=== PATIENT | male | born 1985 | race Caucasian/White ===

== ENCOUNTER 2021-07-03 11:08 | Emergency (ER) | payer BC, SELFPAY ==
--- NOTE | ~2021-07-03 | XR_ITS ---
EXAMINATION: XR FOOT, RIGHT CLINICAL INFORMATION: Pain COMPARISON: None TECHNIQUE: AP, lateral, and oblique views of the right foot. FINDINGS: There is no evidence of acute fracture or dislocation of the right foot. No significant soft tissue swelling is seen. There is a Achilles calcaneal spur present. No radiopaque foreign body. XR/XR foot RT min 3V IMPRESSION: Achilles calcaneal spur. No significant bony abnormality of the right foot identified.
[2021-07-03 11:34] VITALS: BP 133/72; PULSE 60; RESP 16; TEMP 37.1; O2SAT 98; BMI 32.7
--- NOTE | 2021-07-03 13:29 | ED_ITS ---
HPI - Extremity Problem General Chief complaint: Extremity Problem Stated complaint: swollen red foot Time Seen by Provider: 07/03/21 12:47 History of Present Illness HPI Narrative: Patient complains of painful swelling on the top of the right foot with no injury for several days, it is significantly improved but still hurts when his work boot rubs on it and when he puts weight on it, pain is mild, he is walking easily there is no no numbness weakness or tingling Related Data Previous Rx's Medication Instructions Recorded ibuprofen 600 mg tablet 600 mg PO Q6H PRN #20 tab 07/03/21 Allergies Allergy/AdvReac Type Severity Reaction Status Date / Time No Known Allergies Allergy Verified 07/03/21 11:39 Review of Systems Review of Systems: Positive for right foot pain and swelling Negative no fever no chills no headache no neck pain no back pain no difficulty breathing no chest pain no skin rashes no other joint pains Yes all other systems are reviewed and are negative PMFSH Past Medical History Source: nursing notes reviewed Social History Social History Advance Directives: No Advance Directives Information Provided: No Physical Exam Vital Signs: Vital Signs: Last Vital Signs Temp 98.7 F 07/03/21 11:34 Pulse 60 07/03/21 11:34 Resp 16 07/03/21 11:34 BP 133/72 07/03/21 11:34 Pulse Ox 98 07/03/21 11:34 Body Mass Index 32.7 General appearance no acute distress Head is normocephalic atraumatic Neck supple nontender Respiratory no distress Extremities full range of motion x4 Right foot exam right foot has full range of motion there is an area of very mild pinkish redness that is not warm or tender on the dorsum of the foot, there is minimal swelling, but the gait is normal it is neurovascular intact distal, skin is intact Skin no rashes Neuro no focal motor sensory deficits Course Course Course Narrative: Right foot x-ray was negative except for a heel spur which is not in the area of redness or pain which is the dorsum of the foot The very mild redness which is not warm or tender is very unlikely to be cellulitis, possibilities are tendinitis, small muscle tear or sprain, or possibly superficial phlebitis Patient ambulates easily and has no significant discomfort except when is workable rubs against it so he is given a couple of days off given the phone number of water treatment specialist and will return should anything worsen Discharge Plan Discharge Clinical Impression: Foot pain, right Patient Disposition: Home, Self-Care Additional Instructions: The x-ray of your right foot was normal The right foot does not seem to have any cellulitis or infection, circulation was good Possibilities are of superficial phlebitis, a small muscle or tendon tear, mild sprain Follow with water treatment specialist, but return to the ER any time if worsens with increased swelling spreading redness worse pain any worse condition or any concerns Prescriptions: New ibuprofen 600 mg tablet 600 mg PO Q6H PRN (Reason: pain) Qty: 20 RF: 0 Referrals: Romario Poon MD [Physician] - 2 days (Right foot pain) Elliott Arce DPM [Physician] - 2 days (Right foot pain or tendinitis) Stand Alone Forms: Work/School Release Interventions: ED Discharge Assessment Last Done: 07/03/21 13:56 Discharge Date/Time: 07/03/21 13:57
== END 2021-07-03 13:57 | disposition home or self-care (01) ==
PROVIDERS: Emergency Provider Emergency Medicine; PCP Internal Medicine
DX: M79.671 Pain in right foot (principal)
CPT/HCPCS: 73630; 99283

== ENCOUNTER 2021-08-13 18:49 | Emergency (ER) | payer BC, SELFPAY ==
--- NOTE | ~2021-08-13 | XR_ITS ---
EXAMINATION: XR HAND, LEFT CLINICAL INFORMATION: Cut with dianna john . COMPARISON: None TECHNIQUE: PA, lateral, and oblique views of the left hand. FINDINGS: Soft tissue edema around the second and third digits without evidence of unexpected radiopaque foreign bodies, acute fractures or malalignment. The carpal rows are and scapholunate interval are preserved. XR/XR hand LT 2V IMPRESSION: No acute fractures or malalignment.
[2021-08-13 18:53] VITALS: BP 183/93; PULSE 95; RESP 20; TEMP 36.9; O2SAT 98; BMI 33.0
--- NOTE | 2021-08-13 19:17 | ED.WOUNDLAC ---
HPI - Wound/Laceration General Chief Complaint: Wound/Laceration Stated Complaint: lac on right hand Time Seen by Provider: 08/13/21 19:04 Source: patient Mode of arrival: ambulatory Limitations: no limitations History of Present Illness HPI narrative: 36-year-old male with no known medical history presents to the emergency department after cutting his left 2nd and 3rd finger with a sweetbread trimmer 30min prior to his arrival in the ED today. He states he is having severe pain, he states he has been applying pressure to the area, and he wrapped it up and a T-shirt help stop the bleeding. He did not clean area. He is able to move his fingers, however causes him severe pain. is not up today and a tetanus shot. He denies chest pain, shortness of breath, fevers, chills, nausea, vomiting. Onset (ago): minute(s) (30) Location: other (Left 2nd and 3rd digits.) Place: home Patient tetanus UTD: No Context: accidental Associated symptoms: none Related Data Previous Rx's Medication Instructions Recorded ibuprofen 600 mg tablet 600 mg PO Q6H PRN #20 tab 07/03/21 amoxicillin 875 mg-potassium 1 tab PO BID 10 Days #20 tab 08/13/21 clavulanate 125 mg tablet (Augmentin) ibuprofen 600 mg tablet 600 mg PO Q6H PRN #20 tab 08/13/21 Allergies Allergy/AdvReac Type Severity Reaction Status Date / Time No Known Allergies Allergy Verified 08/13/21 18:53 Review of Systems Review of Systems: Constitutional : No Fever, No Chills, Cardiovascular : No Chest Pain, No SOB Respiratory : No Dyspnea Gastrointestinal : No abdominal pain Musculoskeletal : No Joint Swelling Skin : No rash, positive skin laceration Neuro : No Weakness, No Numbness Psych : No SI/HI Neurologic: Reports Abnormal speech present [facility] Past Medical History Medical History (Updated 08/13/21 @ 19:25 by August Burns MD) Carpal tunnel syndrome Surgical History (Updated 08/13/21 @ 18:55 by Arleen Mak RN) H/O shoulder surgery Social History Social History Advance Directives: No Advance Directives Information Provided: No Physical Exam Vital Signs: Vital Signs: Last Vital Signs Temp 97.5 F 08/13/21 20:00 Pulse 72 08/13/21 20:00 Resp 18 08/13/21 20:00 BP 158/70 H 08/13/21 20:00 Pulse Ox 100 08/13/21 20:00 Body Mass Index 33.0 Const: General: cooperative Nutritional Appearance: average body habitus Orientation/consciousness: oriented to person, oriented to place and oriented to time Limitations: no limitations HENMT: Head: Yes normal to inspection Mouth: Normal oral and palatal mucosa present Eyes: General: appearance normal, both eyes and all related structures Pupils: Equal, round and reactive pupils present EOM: EOMs intact bilaterally Neck: Neck: Yes normal visual inspection and Yes full ROM Thyroid: Thyroid normal Lymphatic: no lymphadenopathy noted Resp: Effort & Inspection: normal respiratory effort and able to speak in complete sentences Auscultation: clear to auscultation bilaterally Cardio: Palpation: normal PMI Rate: regular rate Rhythm: regular rhythm and abnormal rhythm Heart sounds: S1 normal heart sound present and S2 normal heart sound present GI: Inspection: Yes normal to inspection Palpation (GI): Soft to palpation and nontender : General: Yes no CVA tenderness Back/Spine/Pelvis: Back: no CVA tenderness Skin: Other: Jagged lacceration and linear lac about 3cm noted to the left 2nd digit to the distal aspect. One jagged laceration noted about 2 cm to the distal aspect of the 3rd digit on the left hand. Patient is able to move the digits, with full but painful range of motion. Strength intact. No evidence of ligament or tendon involvement. Neurovascularly intact upper and lower extremities. Sensation, and motor intact at both of these digits, good pulses, capillary refill less than 2 seconds. Trauma: lacerations and/or abrasions noted and laceration (To left 2nd and 3rd digits) Neuro: General: oriented to person, oriented to place and oriented to time Cranial nerves: Yes CN's II-XII intact bilaterally and Yes Equal, round and reactive pupils present Cognition (Neuro): normal cognition Speech: Abnormal speech present Gait exam (Neuro): Normal gait present Motor exam (neuro): 5/5 motor strength present throughout Sensory Exam: Normal double simultaneous stimulation for sensation Extrem: General: Yes normal to inspection, Yes full ROM and Yes no pedal edema Hand/finger images: 1. flap laceration 3 cm in length, tendon intact , neurovascular intact 2. flap laceration 2.5 cm , tendon intact , neuro vascular intact Psych: Mental Status: mental status grossly normal MDM - Wound/Laceration MDM Narrative Medical decision making narrative: 28-year-old male presents to the emergency department after cutting his left 2nd and 3rd digits with a sweetbread trimmer. He states this was an accident. He is having severe pain to both of these digits. Upon physical examination there is 1 jagged laceration and one linear lac noted to the 2nd digit about 2 cm. There is also a jagged laceration noted to the 3rd digit to the distal aspect of the digit. Both of these digits have normal sensory and motor. Neurovascularly intact. No evident ligament, or tendon involvement. Wound was closed with 5-0 non dissolvable sutures (12 sutures in the second digit, 5 sutures to third digit). Patient tolerated the procedure well, with no complications. Will be discharged home on antibiotics, should return in 10 days for suture removal. Has also been instructed to look out for signs of infection such as fevers, chills, discharge from the wound, warmth, or excessive redness, he has been told to return to the emergency department with new or worsening symptoms. Imaging Data Left hand x-ray: Attestation: I personally reviewed and interpreted this imaging study as follows: Radiologist's impression: FINDINGS: Soft tissue edema around the second and third digits without evidence of unexpected radiopaque foreign bodies, acute fractures or malalignment. The carpal rows are and scapholunate interval are preserved.? XR/XR hand LT 2V IMPRESSION: No acute fractures or malalignment. Procedures Laceration Laceration 1: Site: hand (Left 2nd finger) Side (If applicable): left Size (cm): 3 Description: flap and other Depth: simple, single layer Local Anesthetic: lidocaine 2% (digital block) Amount of anesthesia used (mL): 5 Pre-repair: wound explored, irrigated extensively and deep structures intact Skin layer closed with: nylon Size (cm): 5-0 Number of sutures: 12 Technique: simple, interrupted Laceration 2: Site: hand (l 3rd finger) Side (If applicable): left Size (cm): 2.5 Description: flap Depth: simple, single layer Local Anesthetic: lidocaine 2% Amount of anesthesia used (mL): 5 Pre-repair: wound explored, irrigated extensively and deep structures intact Skin layer closed with: nylon Size (cm): 5-0 Number of sutures: 5 Technique: simple, interrupted Discharge Plan Discharge Clinical Impression: Laceration Patient Disposition: Home, Self-Care Instructions: Finger Laceration (ED) Additional Instructions: Return to ED or PCP in 10 days for suture removal there was a total of 17 sutures placed. local care as adv Take your antibiotics as prescribed, do not skip any doses. He may take ibuprofen for the pain as needed. Return to the emergency department with new or worsening symptoms. Or if you develop signs of infection, such as redness, fevers, chills Prescriptions: New amoxicillin-pot clavulanate [Augmentin] 875-125 mg tablet 1 tab PO BID 10 Days Qty: 20 RF: 0 ibuprofen 600 mg tablet 600 mg PO Q6H PRN (Reason: pain) Qty: 20 RF: 0 No Action ibuprofen 600 mg tablet 600 mg PO Q6H PRN (Reason: pain) Qty: 20 RF: 0 Stand Alone Forms: Work/School Release
[2021-08-13 20:00] VITALS: BP 158/70; PULSE 72; RESP 18; TEMP 36.4; O2SAT 100
[2021-08-13] MEDS: Lidocaine HCl 2 % 20 ML VIAL 10 ML SUBCUT (20:03)
[2021-08-13] MEDS: oxyCODONE HCl Immed Release 5 MG TABLET 10 MG PO (20:03)
[2021-08-13] MEDS: Diphth,Pertus(ACell),Tet Adult 0.5 ML SYRINGE IM (20:04)
[2021-08-13] MEDS: Amoxicillin/Potassium Clav 875 MG TABLET PO (20:04)
== END 2021-08-13 20:46 | disposition home or self-care (01) ==
PROVIDERS: Emergency Provider Internal Medicine; PCP Optometrist
DX: S61.211A Laceration without foreign body of left index finger without damage to nail, initial encounter (principal); S61.213A Laceration without foreign body of left middle finger without damage to nail, initial encounter; S60.512A Abrasion of left hand, initial encounter; W29.3XXA Contact with powered garden and outdoor hand tools and machinery, initial encounter; Y93.9 Activity, unspecified; Y92.007 Garden or yard of unspecified non-institutional (private) residence as the place of occurrence of the external cause; Y99.9 Unspecified external cause status; Z79.899 Other long term (current) drug therapy
CPT/HCPCS: 12002; 73120; 90471; 90715; 99284

== ENCOUNTER 2022-01-29 13:46 | Outpatient (REF) | payer BC, SELFPAY ==
--- NOTE | ~2022-01-29 | XR_ITS ---
EXAMINATION: XR WRIST, RIGHT CLINICAL INFORMATION: Right wrist pain. COMPARISON: None TECHNIQUE: PA, oblique, lateral, and scaphoid views of the right wrist. FINDINGS: No acute fracture or dislocation. Normal carpal alignment. No joint space narrowing or marginal osteophytes. No osseous erosion. No abnormal soft tissue calcification. XR/XR wrist RT w scaphoid IMPRESSION: Unremarkable examination.
== END 2022-01-29 13:47 | disposition home or self-care (01) ==
LOC: HO.HOSX 13:46
PROVIDERS: PCP Internal Medicine; Visit Provider Orthopaedic Surgery
DX: R20.0 Anesthesia of skin (principal); R20.2 Paresthesia of skin; M25.531 Pain in right wrist; G56.03 Carpal tunnel syndrome, bilateral upper limbs
CPT/HCPCS: 73110

== ENCOUNTER 2022-04-02 09:32 | Outpatient (REF) | payer BC, SELFPAY ==
--- NOTE | 2022-04-02 09:34 | EMG_ITS ---
This is a 37-year-old man with a history of numbness and tingling in both hands with the right being worse than left. PHYSICAL EXAMINATION: His neurological examination is normal with no Tinel sign or Phalen sign. IMPRESSION: Carpal tunnel syndrome. Nerve conduction EMG study: Moderate carpal tunnel syndrome on the right. Early carpal tunnel syndrome on the left. Normal EMG of the right C5-T1 innervated muscles. MD ARNIE Cuevas/AUBREE / [id number]
== END 2022-04-02 09:33 | disposition home or self-care (01) ==
LOC: HO.NEURO 09:32
PROVIDERS: Visit Provider Orthopaedic Surgery
DX: R20.0 Anesthesia of skin (principal); R20.2 Paresthesia of skin
CPT/HCPCS: 95885; 95913

== ENCOUNTER → 2022-04-08 08:34 | Outpatient (BNVA) | payer BC, SELFPAY | PROVIDERS: PCP Family Medicine; Visit Provider Physician Assistant | DX: G56.03 Carpal tunnel syndrome, bilateral upper limbs (principal) ==

== ENCOUNTER 2022-05-08 11:28 | Day surgery (SDC) | payer BC, SELFPAY ==
[2022-05-08 11:55] VITALS: BP 137/86; PULSE 83; RESP 18; TEMP 36.7; O2SAT 98
[2022-05-08 12:03] VITALS: BMI 36.3
--- NOTE | 2022-05-08 13:24 | MHC.SHP ---
Pre-Procedural Eval Section A Date of Service: 05/08/22 The patient is an INPATIENT: No Changes since office visit: No Cold of Flu in the past 2 weeks, No New Medical Problems, No Changes in Medication and No Patient answered all questions The History & Physical has been completed within 30 days and I have reviewed it.: Yes Section B Chief Complaint: Carpal tunnel syndrome, right upper limb Allergies: Allergies Allergy/AdvReac Type Severity Reaction Status Date / Time No Known Allergies Allergy Verified 05/08/22 11:40 Plan I have reviewed the history and physical and performed a pertinent physical examination on my patient. No changes have occurred unless specified.
--- NOTE | 2022-05-08 13:24 | W.PM.OPN ---
Operative Note Operative Note Date of Service: 05/08/22 Narrative: Preop diagnosis: 1. right Carpal tunnel syndrome Postop diagnosis: same Procedure: 1. right Carpal tunnel release Surgeon: Michelle Flores MD Anesthesia: local block using 1% lidocaine with epinephrine Findings: Thickened transverse carpal ligament. EBL: Less than 5 mL Specimens: None Complications: None Disposition: Brought to recovery room in stable condition Plan: Follow-up for 10-14 days for wound check and suture removal Indications: The patient is 37 years old, with right carpal tunnel syndrome that has been unresponsive to nonoperative management. The risks and benefits of operative treatment including but not limited to risk of damage to blood vessels, nerves, tendons, infection, persistent pain, persistent symptoms, or possible need for additional surgery were discussed with the patient and the patient wishes to proceed with surgery. Procedure: Once consent was obtained a local block was performed using a combination of 1% lidocaine with epinephrine. The patient was then brought back to the operating suite and placed on the operative table in supine position. A tourniquet was applied to the proximal aspect of the right upper extremity and the limb was prepped and draped in a standard surgical fashion. Once assured that we had a good block, a 1.5 cm longitudinal incision was made centered over the carpal tunnel. The incision was made through the skin to the subcutaneous tissues using a #15 blade. Dissection was made down to the level of the transverse carpal ligament with care being taken to protect the palmar cutaneous nerve. Once the transverse carpal ligament was clearly visualized, a longitudinal incision was made in the transverse carpal ligament 1st using a #15 blade, then using tenotomy scissors under direct visualization. Care was taken to look for and protect the motor branch of the median nerve when seen in this area. Once satisfied with our carpal tunnel release the wound was copiously irrigated with normal saline and hemostasis was obtained with a brief period of local pressure. The skin edges were reapproximated with some 5.0 nylon suture material and a sterile dressing was applied. The patient appears to have tolerated the procedure well and with no complications. All digits were well vascularized at the conclusion of the case.
--- NOTE | 2022-05-08 13:49 | PC.NURSE ---
POST OP VITAL SIGNS: 126/79, P 75, RR 14, 02 SAT 97%.
== END 2022-05-08 14:00 | disposition home or self-care (01) ==
PROVIDERS: Visit Provider Orthopaedic Surgery
PROC: (CPT 64721; principal; 2022-05-08 12:30)
DX: G56.01 Carpal tunnel syndrome, right upper limb (principal); R20.0 Anesthesia of skin
CPT/HCPCS: 64721; J0171

== ENCOUNTER 2022-06-02 08:36 | Day surgery (SDC) | payer BC, SELFPAY ==
[2022-06-02 08:50] VITALS: BMI 34.9
[2022-06-02 10:24] VITALS: BP 133/71; PULSE 69; RESP 16; TEMP 37; O2SAT 98
--- NOTE | 2022-06-02 10:24 | MHC.SHP ---
Pre-Procedural Eval Section A Date of Service: 06/02/22 Section B Chief Complaint: CT Allergies: Allergies Allergy/AdvReac Type Severity Reaction Status Date / Time No Known Allergies Allergy Verified 06/02/22 08:50 Plan I have reviewed the history and physical and performed a pertinent physical examination on my patient. No changes have occurred unless specified.
--- NOTE | 2022-06-02 10:24 | W.PM.OPN ---
Operative Note Operative Note Date of Service: 06/02/22 Narrative: Preop diagnosis: 1. left Carpal tunnel syndrome Postop diagnosis: same Procedure: 1. left Carpal tunnel release Surgeon: Michelle Flores MD Anesthesia: local block using 1% lidocaine with epinephrine Findings: Thickened transverse carpal ligament. EBL: Less than 5 mL Specimens: None Complications: None Disposition: Brought to recovery room in stable condition Plan: Follow-up for 10-14 days for wound check and suture removal Indications: The patient is 37 years old, with left carpal tunnel syndrome that has been unresponsive to nonoperative management. The risks and benefits of operative treatment including but not limited to risk of damage to blood vessels, nerves, tendons, infection, persistent pain, persistent symptoms, or possible need for additional surgery were discussed with the patient and the patient wishes to proceed with surgery. Procedure: Once consent was obtained a local block was performed using a combination of 1% lidocaine with epinephrine. The patient was then brought back to the operating suite and placed on the operative table in supine position. A tourniquet was applied to the proximal aspect of the left upper extremity and the limb was prepped and draped in a standard surgical fashion. Once assured that we had a good block, a 1.5 cm longitudinal incision was made centered over the carpal tunnel. The incision was made through the skin to the subcutaneous tissues using a #15 blade. Dissection was made down to the level of the transverse carpal ligament with care being taken to protect the palmar cutaneous nerve. Once the transverse carpal ligament was clearly visualized, a longitudinal incision was made in the transverse carpal ligament 1st using a #15 blade, then using tenotomy scissors under direct visualization. Care was taken to look for and protect the motor branch of the median nerve when seen in this area. Once satisfied with our carpal tunnel release the wound was copiously irrigated with normal saline and hemostasis was obtained with a brief period of local pressure. The skin edges were reapproximated with some 5.0 nylon suture material and a sterile dressing was applied. The patient appears to have tolerated the procedure well and with no complications. All digits were well vascularized at the conclusion of the case.
== END 2022-06-02 10:33 | disposition home or self-care (01) ==
PROVIDERS: Visit Provider Orthopaedic Surgery
PROC: (CPT 64721; principal; 2022-06-02 10:30)
DX: G56.02 Carpal tunnel syndrome, left upper limb (principal); R20.0 Anesthesia of skin; R20.2 Paresthesia of skin
CPT/HCPCS: 64721; J0171

== ENCOUNTER 2022-08-26 15:30 | Outpatient (RCR) | payer BC, SELFPAY ==
--- NOTE | 2022-08-19 16:15 | MHC.OT.EP ---
[address] [phone] Occupational Therapy Plan of Care Date of Evaluation: 08/19/22 Diagnosis: Right hand pain s/p CTR Left hand pain s/p CTR Left mild positive Finkelsteins Assessment: Pt is a 37 yo male s/p right CTR 07/29/22 and left CTR 06/02/22. 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 Today he present with pos Finkelsteins bilaterally and a complaint of occasional digit numbness bilaterally.. ROM and strength are WFL Pt will benefit from OT for residual pain s/p CTR and mild sx of Dequervains tenosynovitis. 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 Thank you once again for your referral.
--- NOTE | 2022-08-26 16:12 | MHC.OT.DC ---
[address] [phone] F: [phone] Occupational Therapy Discharge Note Provider: Michelle Flores Diagnosis: Right hand pain s/p CTR Left hand pain s/p CTR Left mild positive Brian Date of Surgery: 06/02/22 Date of Evaluation: 08/19/22 Date of Discharge: 08/26/22 Treatments to Date: 3 Cancellations to Date: 0 No Shows to Date: 0 Discharge Status: Achieved Goals Improved Function Independent with HEP Patient Elected to Stop Discharge Summary: Pt reports pain improving . Low with work tasks 2/10 except for sand blasting pain 5/10 at base of right thumb Radial wrist pain resolved. Pt reports managing without difficulty Goals met. Electronically Signed By: Agnes Urias OT CHT CLT Reviewed/agree with student documentation: Therapist: Please Sign and return to therapist, thank you for your referral.
== END 2022-08-26 16:12 | disposition home or self-care (01) ==
LOC: HO.OT 15:30
PROVIDERS: PCP Family Medicine; Visit Provider Orthopaedic Surgery
DX: Z98.890 Other specified postprocedural states (principal); M79.641 Pain in right hand; M79.642 Pain in left hand
CPT/HCPCS: 29130; 97035; 97110; 97166; 97760

== ENCOUNTER → 2024-06-13 14:00 | Outpatient (REF) | payer BC, SELFPAY ==
--- NOTE | 2024-06-13 | ECG_ITS ---
Test Reason : f33.1 Blood Pressure : / mmHG Vent. Rate : 102 BPM Atrial Rate : 102 BPM P-R Int : 134 ms QRS Dur : 082 ms QT Int : 336 ms P-R-T Axes : 076 058 054 degrees QTc Int : 437 ms Sinus tachycardia Right atrial enlargement Borderline ECG No previous ECGs available Referred By: Barbi Cunningham Electronically Signed By:STEPHANIE STEVENSON
== END ==
LOC: HO.CARD 14:00
PROVIDERS: Visit Provider Psychiatry & Neurology Psychiatry
DX: F33.2 Major depressive disorder, recurrent severe without psychotic features (principal); F10.10 Alcohol abuse, uncomplicated
CPT/HCPCS: 93005

== ENCOUNTER → 2024-06-13 14:05 | Outpatient (BNV) | payer BC, SELFPAY | PROVIDERS: Visit Provider Internal Medicine | DX: R00.0 Tachycardia, unspecified (principal); R94.31 Abnormal electrocardiogram [ECG] [EKG]; F33.1 Major depressive disorder, recurrent, moderate | CPT/HCPCS: 93010 ==

== ENCOUNTER 2024-06-23 11:15 | Outpatient (RCR) | payer BC, SELFPAY ==
[2024-06-10 09:39] VITALS: BP 130/90; PULSE 76; TEMP 36.3; BMI 39.4
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
--- NOTE | 2024-06-10 12:03 | P.HPPSP_ITS ---
[facility] Date of Service: 06/10/24 Chief Complaint: PTSD,AUD Sources of Information: patient interviewed, chart reviewed and crisis/core team assessment reviewed Additional Sources of Information: Patient prefers to go by Dustin PIERRE Narrative: Patient is a 39 yo male with history of lifelong alcohol use, depression, PTSD stemming from a rough childhood exposed to alcohol at a young age. He relays struggles with mood regulation as well as problems with anger outbursts and poor frustration tolerance, heavy reliance on alcohol use, which is apparently an issue with his , although patient minimizes this problem. He has had limited MH treatment in the past, ore recently has been started on acamprosate, venlafaxine and amitripyline which he says is more medication than I care to be on and does not feel that they have been particularly helpful. He relays having complicated relationships with family as well as within his marriage. He relays a hsitory of alcoholism on both sides of the family and that he was given alcohol to drink at a young age. He denies any other substance use. He lives at home with his and pets. Patient overall defensive and minimizing issues around alcohol use, declines increase in acamprosate even though continues to describe strong urges/cravings to drink, but denies this because I dont have any dependency, i've never had withdrawal symptoms so this is just me wanting to have a drink sometimes. Externalizes irritability/anger problems as being caused by frustrating situations and people rather than intrinsic problem. Past Psychiatric History: CURRENT MEDICATIONS venlafaxine 225 mg qd amitriptyline 25 mg qhs acamprosate 333 mg TID cyclobenzaprine 5 mg TID prn muscle spasms [facility] Medical History (Updated 07/02/24 @ 20:02 by Barbi Cunningham MD) History of vertigo Arthritis of spine Lumbar herniated disc Carpal tunnel syndrome Surgical History H/O carpal tunnel repair H/O shoulder surgery Social History: , no children Lives at home with Diagnostics Vital Signs (24Hr): BMI result Body Mass Index 39.4 Meds/Allergies Meds Home Medications ?Medication ?Instructions ?Recorded ?Confirmed ?Type amitriptyline 25 mg tablet 25 mg PO BEDTIME 06/10/24 06/10/24 History cyclobenzaprine 5 mg tablet 5 mg PO TID PRN Muscle Spasms 06/10/24 06/10/24 History venlafaxine 150 mg 150 mg PO DAILY 06/10/24 06/10/24 History capsule,extended release 24 hr venlafaxine 75 mg capsule,extended 75 mg PO DAILY 06/10/24 06/10/24 History release 24 hr Allergies Allergies Allergy/AdvReac Type Severity Reaction Status Date / Time No Known Allergies Allergy Verified 07/29/22 16:12 Mental Status Exam Mental Status Exam Narrative: Alert, oriented, in no acute distress. Superificially engaged, guarded. No psychomotor agitation or neurovegetative retardation. Eye contact maintained. Mood depressed, affect constricted, irritable edge without notable lability. Speech normal. Thought process linear, coherent. Thought content related to stressors, anhedonia, transient helplessness, hopelessness, denies any current SI, intention, urge or plan. Denies any aggressive ideation or HI. No paranoia or delusional content elicited. No evidence of psychosis. Insight and judgment - fair but adequate Assessment & Plan Assessment & Plan (1) Alcohol use disorder: Status: Acute Code(s): F10.90 - Alcohol use, unspecified, uncomplicated (2) PTSD (post-traumatic stress disorder): Status: Acute Code(s): F43.10 - Post-traumatic stress disorder, unspecified (3) JUHI (generalized anxiety disorder): Status: Acute Code(s): F41.1 - Generalized anxiety disorder (4) Other specified persistent mood disorders: Status: Acute Code(s): F34.89 - Other specified persistent mood disorders Assessment and Plan: Depressive Disorder r/o MDD vs dysthymia vs other mood spectrum +/- alcohol-induced mood disorder r/o IED (5) Cannabis abuse: Status: Acute Code(s): F12.10 - Cannabis abuse, uncomplicated Plan Admit to PHP VS reviewed: abrefile; BP?130/90; 76 bpm Patient was defensive, irritable and difficult to engage in treatment, minimizing issues related to alcohol use and depression marked by extreme irritability. Declined any change in medications including increase in acamprosate, starting naltrexone, or starting on a mood stabilizer (such as oxcarbazapine) to target irritability/anger issues. He does not feel the amitriptyline is doing anything, but declines to have this discontinued or changed. WIll continue to build rapport. Continue regular medications for now venlafaxine 225 mg qd acamprosate 333 mg TID amitriptyline 25 mg qhs cyclobenzaprine 5 mg TID prn muscle spasm Routine lab work ordered UDS, EKG as indicated MassPat reviewed Continue to monitor as per protocol Patient educated on: diagnosis, medication risk/benefits and substance abuse Informed Consent: understands Reason for continued partial hosp. stay Substantial Risk for: inability to function and med/psych decompensation Certification I certify that partial hospital treatment is medically necessary due to the symptoms and problems resulting from the patient's mental illness and the failure to treat the patient at the partial hospital level of care would likely result in the patient requiring inpatient psychiatric care which could not be prevented at a less intensive level of care. Time Spent With Patient Time: Total time managing care of this patient today __60__ minutes.
--- NOTE | 2024-06-13 13:04 | P.PNPSP_ITS ---
Subjective Subjective Date of Service: 06/13/24 Reason For Visit: PTSD,AUD Interim History: Patient presents as slightly irritable and defensive. He reports having a couple of beers, says that's fine and minimizes his drinking. He feels if he drinks in moderation then his alcohol use shouldnt be seen as a problem. He denies having any regrets about drinking. He does admit that his drinking is considered a problem according to his and his drinking is often a source of arguments wi th his . He relays being irritable, and quick to anger. He also says if he doesn't drink he is more easily irritated and says in general that he is prone to holding grudges. He denies having cravings, but clarifies that he has a strong desire to drink but no physical need or shakiness or sick feeling . I clarify that those 'thoughts or urges to drink' are in fact cravings; and what he described as cravings are rather symptoms of what withdrawal would feel like. Sleep, appetite are intact. Energy is low. Describes anhedonia, denies any SI, HI. Medication Compliance: Yes Side effects from medications: No Attending Groups: Yes Review of Systems Acute medical concerns: No Mental Status Exam Mental Status Exam Narrative: Alert, oriented, in no acute distress. Calm, cooperative. Mood depressed, irritable, affect mood congruent. Speech normal. Thought process linear, coherent, more goal-directed. Thought content related to stressors, future- oriented, denies any helplessness, hopelessness or SI.? No aggressive ideation or HI. No paranoia or delusional content elicited. No evidence of psychosis. Insight and judgment fair-good. Diagnostics Vital Signs (24Hr): BMI result Body Mass Index 39.4 Assessment & Plan Assessment & Plan (1) Other recurrent depressive disorders: Status: Acute Code(s): F33.8 - Other recurrent depressive disorders Assessment and Plan: SIMD with depression marked by poor frustration tolerance and irritability r/o out other episodic mood disorder vs bipolar spectrum disorder r/o IED (2) PTSD (post-traumatic stress disorder): Status: Acute Code(s): F43.10 - Post-traumatic stress disorder, unspecified (3) Alcohol use disorder: Status: Acute Code(s): F10.90 - Alcohol use, unspecified, uncomplicated (4) JUHI (generalized anxiety disorder): Status: Acute Code(s): F41.1 - Generalized anxiety disorder (5) Cannabis abuse: Status: Acute Code(s): F12.10 - Cannabis abuse, uncomplicated Plan patient would likely benefit from a low dose mood stabilizer (eg oxcarbazapine) to target baseline irritability, reactivity (exacerbated by alcohol use) but currently declines starting any new medications or medication changes continue venlafaxine 225 mg qd continue acamprosate 333 mg TID continue amitriptyline 25 mg qhs continue cyclobenzaprine 5 mg TID prn muscle spasm Routine lab work ordered UDS, EKG as indicated MassPat reviewed Continue to monitor Certification I certify that partial hospital treatment is medically necessary due to the symptoms and problems resulting from the patient's mental illness and the failure to treat the patient at the partial hospital level of care would likely result in the patient requiring inpatient psychiatric care which could not be prevented at a less intensive level of care. Total time managing care of this patient today ____ minutes. Discharge Plan Discharge Attending provider: Barbi Cunningham Additional Instructions: 06/29/2024? 03:30 PM - 04:30 PM Urgent Care Comprehensive Assessment Adult-?In-Office Prog: [facility] Site:?[address] [place] [address], [place], [place]? Staff: RIGOBERTO SALCEDO 07/25/2024? ?11:00 AM - 12:00 PM Psychiatric E/M New -?Telehealth v2 Prog: Psychiatric Services Site: [facility] Staff: RACHEL ANDERSON Medications: New oxcarbazepine 150 mg tablet 150 mg PO BID Qty: 30 0RF Continued venlafaxine 75 mg capsule,extended release 24hr 75 mg PO DAILY venlafaxine 150 mg capsule,extended release 24hr 150 mg PO DAILY Rx Instructions: Take with 75 mg tab daily. cyclobenzaprine 5 mg Tablet 5 mg PO TID PRN (Reason: Muscle Spasms) amitriptyline 25 mg Tablet 25 mg PO BEDTIME Changed acamprosate 333 mg Tablet,Delayed Release (Dr/Ec) 666 mg PO TID Qty: 90 0RF Rx Instructions: administer with mid-day and evening meals Stand Alone Forms: Patient Portal Discharge page Print Language: Cook Islander
--- NOTE | 2024-06-16 14:55 | HO.PHP ---
Pt's case has been opened and reviewed in treatment team.
[2024-06-17 06:17] LABS: Amphetamine Screen Urine Not Detected (Not Detect); Barbiturates, Urine Not Detected (Not Detect); Benzodiazepines Screen Urine Not Detected (Not Detect); Buprenorphine Scr Not Detected (Not Detect); Cannabinoid Screen Urine POSITIVE (Not Detect); Cocaine Screen Urine Not Detected (Not Detect); Fentanyl, urine Not Detected (Not Detect); Methadone Screen, Urine Not Detected (Not Detect); Opiate Screen Urine Not Detected (Not Detect); Oxycodone Screen Urine Not Detected (Not Detect); Phencyclidine Screen Urine Not Detected (Not Detect)
--- NOTE | 2024-06-23 13:44 | HO.PHP ---
Tad's appointment for intake and med management appointment are listed as follows: 06/29/2024? 03:30 PM - 04:30 PM Urgent Care Comprehensive Assessment Adult-?In-Office Prog: [facility] Site:?[address] [facility] [place]? Staff: RIGOBERTO SALCEDO 07/25/2024? ?11:00 AM - 12:00 PM Psychiatric E/M New -?Telehealth v2 Prog: Psychiatric Services Site: [facility] Staff: RACHEL ANDERSON
--- NOTE | 2024-06-23 22:03 | HO.PHPPROGNO ---
Subjective Subjective Date of Service: 06/23/24 Reason For Visit: PTSD,AUD Interim History: Patient seen for follow-up, anticipating discharge at the end of program today.? Definitely helped being here. Definitely see I have a ways to go . Patient relays some improvements in self reflection and insight. I keep falling back on mu old drinking habits. I think I really should be on that medication you've been talking about (oxcarbazapine). I think I have a lot of anger, anger toward my mother, toward myself and then I just kind of take it out on others...just get in a crummy mood and it's hard to stay on track . Patient states he would also like to increase the dose of acamprosate as was discussed earlier. I guess I just wasnt ready to hear this stuff, I didnt know I needed help...but I am ready now . He plans to continue working with his therapy. He says he has also had a change of heart about getting a psychiatrist and spoke with Giovana about this. He is scheduled for an appointment on 07/06. Otherwise reports no acute issues or concerns. Eating , sleeping is fine. Medication compliant, medications well-tolerated. Denies any adverse effects.?Denies any hopelessness or SI. Denies thoughts of harming self or others at this time. Denies any aggressive ideation or HI. Denies any paranoia or AH or VH. I agree to starting him on oxcarbazapine 150 mg BID but will need to follow up with new psych provider who will continue to manage his medications. He is invited to call back for any questions until meeting with new provider on 07/06. Medication Compliance: Yes Side effects from medications: No Attending Groups: Yes Review of Systems Acute medical concerns: No Mental Status Exam Mental Status Exam Narrative: Alert, oriented, in no acute distress. Calm, cooperative. Mood depressed, irritable but stable, affect appropriate. Speech normal. Thought process linear, coherent, more goal-directed. Thought content related to stressors, future-oriented, denies any helplessness, hopelessness or SI.? No aggressive ideation or HI. No paranoia or delusional content elicited. No evidence of psychosis. Insight and judgment fair-good. Diagnostics Vital Signs (24Hr): BMI result Body Mass Index 39.4 Assessment & Plan Assessment & Plan (1) Other recurrent depressive disorders: Status: Acute Code(s): F33.8 - Other recurrent depressive disorders Assessment and Plan: SIMD with depression (2) PTSD (post-traumatic stress disorder): Status: Acute Code(s): F43.10 - Post-traumatic stress disorder, unspecified (3) Alcohol use disorder: Status: Acute Code(s): F10.90 - Alcohol use, unspecified, uncomplicated (4) JUHI (generalized anxiety disorder): Status: Acute Code(s): F41.1 - Generalized anxiety disorder (5) Cannabis abuse: Status: Acute Code(s): F12.10 - Cannabis abuse, uncomplicated Plan [facility]charge from [facility] will start oxcarbazepine at 150 mg BID (will plan to follow up with phone call next ) continue venlafaxine 225 mg qd increase acamprosate to 666 mg TID continue amitriptyline 25 mg qhs continue cyclobenzaprine 5 mg TID prn muscle spasm Refills sent to pharmacy Will defer further medication management to outpatient provider, appointment on 07/06 *Safety plan reviewed *Discharge diagnoses, treatment course, discharge plan have been reviewed with patient (including medication regime, medication management, potential side effects) as well as treatment rationale were also revisited *Discharge paperwork signed and given to patient, copy sent for scanning to chart Patient educated on: diagnosis, medication risk/benefits and substance abuse Informed Consent: understands Reason for contiued partial hosp. stay Substantial Risk for: stable for discharge Certification I certify that partial hospital treatment is medically necessary due to the symptoms and problems resulting from the patient's mental illness and the failure to treat the patient at the partial hospital level of care would likely result in the patient requiring inpatient psychiatric care which could not be prevented at a less intensive level of care. Total time managing care of this patient today __60__ minutes. Discharge Plan Discharge Attending provider: Barbi Cunningham Additional Instructions: 06/29/2024? 03:30 PM - 04:30 PM Urgent Care Comprehensive Assessment Adult-?In-Office Prog: [facility] Site:?[address] [place] [address], [place], [place]? Staff: RIGOBERTO SALCEDO 07/25/2024? ?11:00 AM - 12:00 PM Psychiatric E/M New -?Telehealth v2 Prog: Psychiatric Services Site: [facility] Staff: RACHEL ANDERSON Medications: New oxcarbazepine 150 mg tablet 150 mg PO BID Qty: 30 0RF Continued venlafaxine 75 mg capsule,extended release 24hr 75 mg PO DAILY venlafaxine 150 mg capsule,extended release 24hr 150 mg PO DAILY Rx Instructions: Take with 75 mg tab daily. cyclobenzaprine 5 mg Tablet 5 mg PO TID PRN (Reason: Muscle Spasms) amitriptyline 25 mg Tablet 25 mg PO BEDTIME Changed acamprosate 333 mg Tablet,Delayed Release (Dr/Ec) 666 mg PO TID Qty: 90 0RF Rx Instructions: administer with mid-day and evening meals Stand Alone Forms: Patient Portal Discharge page Print Language: Sinhala
== END 2024-06-23 23:59 | disposition home or self-care (01) ==
LOC: HO.PHPA 11:15
PROVIDERS: Visit Provider Psychiatry & Neurology Psychiatry
DX: F43.10 Post-traumatic stress disorder, unspecified (principal); F41.1 Generalized anxiety disorder; F34.89 Other specified persistent mood disorders; F33.8 Other recurrent depressive disorders; F12.10 Cannabis abuse, uncomplicated; F10.90 Alcohol use, unspecified, uncomplicated; Z79.899 Other long term (current) drug therapy
CPT/HCPCS: 80307; 90791; 90853

== ENCOUNTER 2024-06-23 13:47 | Outpatient (REF) | payer BC, SELFPAY ==
[2024-06-23 14:10] LABS: MANUAL DIFF FLAG NO
[2024-06-23 14:40] LABS: Basophils Absolute Auto 0.1 X10*3/uL (0.0-0.2); Basophils Percent Auto 0.9 % (0-2); Eosinophils Absolute Auto 0.1 X10*3/uL (0.0-0.4); Eosinophils Percent Auto 1.4 % (0-4); Hematocrit 42.7 % (42.0-52.0); Hemoglobin 14.6 g/dl (14.0-18.0); Imm Gran Abs Auto 0.06 X10*3/uL (0.00-0.03); Imm Gran Pct Auto 0.7 % (0.0-0.4); Lymphocytes Absolute Auto 2.2 X10*3/uL (1.2-4.9); Lymphocytes Percent Auto 25.1 % (20-40); Mean Corpuscular HGB Conc 34.2 g/dl (31.0-36.0); Mean Corpuscular Volume 87.9 fL (80.0-98.0); Monocytes Absolute Auto 0.6 X10*3/uL (0.1-1.2); Monocytes Percent Auto 7.3 % (2-11); Neutrophils Absolute Auto 5.7 x10*3/uL (2.0-8.3); Neutrophils Percent Auto 64.6 % (45-73); Platelet Count 199 X10*3/uL (160-400); Red Blood Count 4.86 X10*6/uL (4.60-5.80); Red Cell Distribution Width 13.5 % (11.0-16.0); White Blood Count 8.8 X10*3/uL (4.8-10.8)
[2024-06-23 14:48] LABS: Estimated Average Glucose 97 mg/dL
[2024-06-23 15:09] LABS: Alanine Aminotransferase 30 U/L (0-40); Albumin Level 4.5 g/dL (3.5-5.0); Alkaline Phosphatase 73 U/L (39-117); Anion Gap 12 (12-20); Aspartate Amino Transferase 24 U/L (5-37); Bilirubin Total 0.3 mg/dL (0.0-1.0); Blood Urea Nitrogen 19 mg/dL (9-16); Calcium 9.9 mg/dL (8.4-10.2); Carbon Dioxide 27 mmol/L (22-29); Chloride 105 mmol/L (96-108); Cholesterol 207 mg/dL (<200); Estimated Glomerular Filt Rate > 60; Glucose Random 70 mg/dL (60-115); Iron 116 mcg/dL (45-160); Percent Iron Saturation 40 % (15-50); Potassium 4.4 mmol/L (3.3-5.1); Sodium 140 mmol/L (135-145); Total Iron Binding Capacity 287 mcg/dL (228-428); Total Protein 7.5 g/dL (6.5-8.0); Unsaturated Iron Binding 171 ug/dL
[2024-06-23 15:24] LABS: Ferritin 202 ng/mL (20-250); TSH reflex Free T4 0.82 uIU/mL (0.32-4.0); Vitamin D 25-OH Total 22.5 ng/mL (>30)
[2024-06-23 15:36] LABS: Folate 7.7 ng/mL (> or = 4.0); Vitamin B12 395 pg/mL (200-900)
[2024-06-30 15:58] LABS: Vitamin B1 12 nmol/L (8-30)
== END 2024-06-23 13:48 | disposition home or self-care (01) ==
LOC: HO.LAB 13:47
PROVIDERS: Visit Provider Psychiatry & Neurology Psychiatry
DX: F10.20 Alcohol dependence, uncomplicated (principal); F39 Unspecified mood [affective] disorder; Z13.1 Encounter for screening for diabetes mellitus
CPT/HCPCS: 36415; 80053; 82306; 82465; 82607; 82728; 82746; 83036; 83540; 83735; 84425; 84443; 85025